=== PATIENT | female | born 1985 | race Caucasian/White ===

== ENCOUNTER 2024-01-12 20:14 | Emergency (ER) | payer BC ==
[2024-01-12 20:20] VITALS: BP 114/72; PULSE 101; RESP 18; TEMP 98.2; BMI 21.1
[2024-01-12] MEDS ORDERED: ONDANSETRON 4 MG/2 ML VIAL ONE (21:29)
[2024-01-12] MEDS: ONDANSETRON 4 MG/2 ML VIAL IVPUSH ONE (21:55)
[2024-01-12 22:10] LABS: BASO % 0.6 % (0-2.0); EOS % 0.1 % (0-4.5); HEMATOCRIT 39.7 % (32.4-45.2); HEMOGLOBIN 13.3 GM/dL (10.7-15.3); LYMPH % 15.3 % (8-40); MCH 30.7 pg (25.7-33.7); MCHC 33.5 g/dl (32.0-36.0); MEAN CELL VOLUME 91.5 fl (80-96); MONO % 6.5 % (3.8-10.2); NEUT % 77.5 % (42.8-82.8); PLATELET COUNT 260 10^3/uL (134-434); RBC 4.34 M/mm3 (3.60-5.2); RDW 12.9 % (11.6-15.6); WHITE BLOOD COUNT 11.7 K/mm3 (4.0-10.0)
[2024-01-12 22:19] LABS: EPI CELLS 23 /uL (0-25.1); HYALINE CASTS 1 /uL (0-3.1); PH,URINE 5.5 (5.0-8.0); URINE APPEARANCE CLEAR; URINE BACTERIA 1704 /uL (0-1359); URINE BILIRUBIN NEGATIVE (NEGATIVE); URINE COLOR DK YELLOW; URINE GLUCOSE (UA) NEGATIVE (NEGATIVE); URINE KETONE 4+ (NEGATIVE); URINE LEUK ESTERASE NEGATIVE (NEGATIVE); URINE NITRITE NEGATIVE (NEGATIVE); URINE PROTEIN 1+ (NEGATIVE); URINE RBC 13 /uL (0-23.9); URINE WBC 43 /uL (0-25.8)
[2024-01-12 22:45] LABS: HCG,QUALITATIVE URINE Negative
[2024-01-12 22:49] LABS: CALCIUM 9.6 mg/dL (8.5-10.1)
[2024-01-12 22:50] LABS: ALBUMIN 4.6 g/dl (3.4-5.0); BLOOD UREA NITROGEN 12.6 mg/dL (7-18)
[2024-01-12 22:53] LABS: CREATININE 0.6 mg/dL (0.55-1.3)
[2024-01-12 22:55] LABS: BILIRUBIN,TOTAL 0.9 mg/dL (0.2-1); TOT PROT 8.1 g/dl (6.4-8.2)
[2024-01-12] MEDS: DEXTROSE 5%-NORMAL SALINE 500 ML IV ONE (23:28)
== END 2024-01-13 01:15 | disposition home or self-care (01) ==
LOC: JER 20:14
PROC: 3E033GC Introduction of Other Therapeutic Substance into Peripheral Vein, Percutaneous Approach (ICD-10-PCS; principal; 2024-01-12)
DX: R11.2 Nausea with vomiting, unspecified (principal); R63.0 Anorexia; R42 Dizziness and giddiness; G47.00 Insomnia, unspecified
CPT/HCPCS: 36415; 80053; 81003; 83735; 84443; 84484; 84703; 85025; 87086; 99284-25